=== PATIENT | female | born 2000 | race Hispanic/Latino ===

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

== ENCOUNTER 2021-05-13 09:45 | Outpatient (CLI) | payer OTHER | END 2021-05-13 09:46 | disposition home or self-care (01) | LOC: BICULT 09:45 | PROVIDERS: ATTEND Physician Assistant | DX: K80.80 Other cholelithiasis without obstruction (principal) | CPT/HCPCS: 76705 ==

== ENCOUNTER 2021-05-21 11:10 | Outpatient (CLI) | payer OTHER ==
[2021-05-21 12:02] LABS: #Basophils 0.1 10x3/uL (0.0-0.2); #Eosinphils 0.3 10x3/uL (0.0-0.5); #Monocytes 0.3 10x3/uL (0.0-1.1); #Neutrophils 3.4 10x3/uL (1.5-8.4); %Basophils 0.9 % (0.0-2.0); %Eosinophils 4.9 % (0.0-6.0); %Lymphocytes 40.6 % (18.0-47.0); %Monocytes 4.3 % (0.0-10.0); %Neutrophils 49.2 % (40.0-75.0); Hemoglobin 12.8 g/dL (12.0-15.5); Mean Corpuscular HGB CONC 32.7 g/dL (32.0-36.0); Mean Corpuscular Hemoglobin 29.4 pg (27.0-33.0); Mean Corpuscular Volume 89.9 fl (81.6-98.3); Mean Platelet Volume 10.9 fl (7.4-10.4); Platelet Count 245 10x3/uL (150-450); Red Blood Cell (RBC) Count 4.36 10x6/uL (3.90-5.03)
[2021-05-21 12:17] LABS: ALT (SGPT) 15 U/L (8-55); AST (SGOT) 16 U/L (5-34); Alkaline Phosphatase 87 U/L (40-110); Anion Gap 13 mmol/L (10-20); BUN (Urea Nitrogen) 19 mg/dL (7.0-18.7); Bilirubin, Total 0.6 mg/dL (0.2-1.2); Calc. Creatinine Clearance 0 mL/min (70-130); Calcium 9.4 mg/dL (7.8-10.44); Carbon Dioxide 27 mmol/L (22-29); Chloride 105 mmol/L (98-107); Globulin 2.9 g/dL (2.4-3.5); Glucose 117 mg/dL (70-105); Potassium 3.5 mmol/L (3.5-5.1); Protein, Total 7.9 g/dL (6.0-8.3); Sodium 141 mmol/L (136-145)
[2021-05-21 12:19] LABS: BHCG - Serum Negative (NEGATIVE); Pregs Control Background? CLEAR/WHITE (CLR/WHITE); Pregs Control Bar Appear? YES (CONTROL BAR)
[2021-05-22 08:50] LABS: SARS-CoV-2 NAA Rapid Test Not Detected (NotDetected)
== END 2021-05-21 11:11 | disposition home or self-care (01) ==
LOC: LABBT 11:10
PROVIDERS: ATTEND Specialist
DX: Z01.812 Encounter for preprocedural laboratory examination (principal); Z20.822 Contact with and (suspected) exposure to COVID-19
CPT/HCPCS: 80053; 84703; 85025; U0002; U0003; U0005

== ENCOUNTER 2021-05-22 09:27 | Day surgery (SDC) | payer OTHER ==
[2021-05-21 10:35] VITALS: BMI 27.1
[2021-05-22] MEDS ORDERED: Scopolamine 1.5 mg/72 hour Patch ONE (09:40)
[2021-05-22] MEDS ORDERED: Ketorolac Tromethamine 30 MG/ML VIAL ONE (09:40)
[2021-05-22] MEDS ORDERED: Acetaminophen 500 MG TAB ONE (09:40)
[2021-05-22] MEDS ORDERED: Bupivacaine PF 0.5% 30 ML VIAL ONE (09:58)
[2021-05-22] MEDS ORDERED: Lidocaine 1% w/Epinephrine 1:100K 20 ML VIAL ONE (09:58)
[2021-05-22] MEDS ORDERED: Fentanyl 250 MCG/5 ML VIAL ONE (10:12)
[2021-05-22] MEDS ORDERED: Midazolam HCl 2 mg/2 ml Vial ONE (10:12)
[2021-05-22] MEDS ORDERED: ceFAZolin Sodium (SDC) 2 GM/100 ML BAG ONE (10:39)
[2021-05-22] MEDS ORDERED: Ondansetron PF 4 MG/2 ML Vial ONE (10:45)
[2021-05-22] MEDS ORDERED: Dexamethasone 20 MG/5 ML VIAL ONE (10:45)
[2021-05-22] MEDS ORDERED: PROPOFOL 200 MG/20 ML VIAL ONE (10:45)
[2021-05-22] MEDS ORDERED: Lidocaine 1% PF 5 ML VIAL ONE (10:45)
[2021-05-22] MEDS ORDERED: diphenhydrAMINE 50 MG/ML VIAL ONE (10:45)
[2021-05-22] MEDS ORDERED: Rocuronium Bromide 10 MG/ML (10ML VIAL) ONE (10:45)
[2021-05-22] MEDS ORDERED: Fentanyl 100 MCG/2 ML VIAL ONE ×2 (11:43→12:02)
== END 2021-05-22 13:35 | disposition home or self-care (01) ==
LOC: SDC 09:27
PROVIDERS: ATTEND Specialist
PROC: 0FT44ZZ Resection of Gallbladder, Percutaneous Endoscopic Approach (ICD-10-PCS; principal; 2021-05-22)
DX: K80.12 Calculus of gallbladder with acute and chronic cholecystitis without obstruction (principal); K82.8 Other specified diseases of gallbladder
CPT/HCPCS: 80053; 84703; 85025; 88304; C1713; J0690; J1100; J1200; J1885; J2250; J2405; J2704; J3010; S0020; U0002; U0003; U0005